=== PATIENT | female | born 1995 | race Asian ===

== ENCOUNTER 2023-04-08 14:07 | Inpatient (IN) ==
[2023-04-08] MEDS ORDERED: LIDOCAINE 1% LOCAL 20 ML VIAL INFIL PRN (14:16)
[2023-04-08] MEDS ORDERED: OXYTOCIN 30 UNITS/NSS 30 UNITS/500 ML BAG IV PRN ×2 (14:16→15:48)
[2023-04-08 14:41] LABS: Hematocrit (blood only) 37.4 % (37.0-47.0); Mean Corpuscular Hgb Conc 34.8 g/dL (32.0-36.0); Mean Corpuscular Volume 92.1 fL (80.0-100.0); Mean Platelet Volume 9.9 fL (9.4-12.4); Platelet Count 214 K/uL (130-400); RDW Standard Deviation 40.7 fL (36.4-46.3); Red Blood Count 4.06 M/uL (4.20-5.40); White Blood Count 6.34 K/ul (4.8-10.8)
--- NOTE | 2023-04-08 16:09 | History & Physical Report ---
Date of Service April 08, 2023 Assessment & Plan (1) Supervision of normal first : Plan: Admit to L&D. EFM/toco. Labs. IV. Amezcua/pit for IOL. Amezcua bulb inserted, 35cc sterile water. Tolerated well. Admission and Anticipated Discharge Date Admission Date: April 08, 2023 History of Present Illness Chief Complaint: IOL Primary Care Provider: [facility] 28yo @ 40 0/7, IOL after in-office NST showed 3 minute deceleration. Hx anorexia Initial HIV-1 pos, follow up secondary testing negative. Thus negative S<D *efw 01/28/23--> 14%, watch fh Allergies Allergy/AdvReac Type Severity Reaction Status Date / Time latex AdvReac Mild Unknown Verified 04/08/23 14:26 avocado AdvReac Unknown Verified 04/08/23 14:27 eliseo AdvReac Unknown Verified 04/08/23 14:26 Home Medications Medication Instructions Recorded Confirmed Type prenat.vits,enzo,sah-[id number]-zzwvi 1 tab PO DAILY 08/20/22 04/08/23 History Patient History Medical History History of chicken pox Surgical History No history of previous surgery Family History Father Hypertension Hypercholesteremia Denies family history of Ovarian cancer Breast cancer Colorectal cancer Social History Smoking Status: Never smoker Do You Dip or Chew Tobacco: No; Hx Alcohol Use: No Hx Substance Use: No Preferred Language: Polish Communication Ability: Effective Telephone Ad Taker Required: No Beliefs That Will Affect Care: None marital status: marital status details: Palomo (29) [phone] Current Living Situation: Spouse Current Living Situation Comment: lives with spouse, no pets current occupational status: student current occupation: grad student [employer] Other Information That Helps Us Care for You: No Feels Safe at Home: Yes Safety Concerns: Feels Safe At This Time Assistive Devices: None Review of Systems All systems reviewed & are unremarkable except as noted in HPI & below Physical Exam Physical Exam: FHT Cat 1 Salome Q 4 SVE 90/-2 Constitutional: WD/WN, vitals as above Respiratory: normal respiratory effort, lungs clear to auscultation no respiratory distress Cardiovascular: Rate/Rhythm: regular rate and regular rhythm Gastrointestinal (Abdomen): Inspection/Auscultation: abdomen normal to inspection Percussion/Palpation: abdomen soft; abdomen nontender Gravid. No s/s chorio or abruption. Skin: no rashes, warm and dry Psychiatric: A+Ox3, euthymic affect Results & Data Vital Signs (Past 12 Hours) Vital Signs Temp Pulse Resp BP 04/08/23 14:21 20 04/08/23 14:21 36.6 C 20 04/08/23 14:20 58 L 137/81 Coding Level of Care Code None Diagnoses Supervision of normal first Z34.00 CPT Codes Misx Procedure Codes - 33097 Placement of cervical dilator: 84551 Placement of cervical dilator ([id number])
[2023-04-08] MEDS ORDERED: ePHEDrine sulfate 50 MG/ML AMP ONE (21:17)
[2023-04-08] MEDS ORDERED: fentaNYL citrate PF 100 MCG/2 ML VIAL ONE (21:17)
[2023-04-08] MEDS ORDERED: BUPIVACAINE 0.25% PF 30 ML VIAL ONE (21:18)
[2023-04-08] MEDS ORDERED: LIDOCAINE 2%/EPINEPHRINE 1:200,000 20 ML PF ONE (21:18)
[2023-04-08] MEDS ORDERED: fentANYL 2 MCG/ML BUPIVacaine 0.125%-NSS 100ML BAG ONE (21:18)
[2023-04-08] MEDS ORDERED: SODIUM CHLORIDE 0.9% PF INJ 10 ML VIAL ONE (21:18)
[2023-04-08] MEDS: LACTATED RINGER'S 1,000 ML IV PRN ×2 (21:23→22:28)
--- NOTE | 2023-04-08 21:31 | Anesthesiology Consultation ---
Date of Service April 08, 2023 Assessment & Plan Consults Requested none Proposed Anesthesia Anesthesia Type: Labor Epidural History Height/Weight Height: 5 ft 4.17 in Weight: 49.442 kg Allergies Allergy/AdvReac Type Severity Reaction Status Date / Time latex AdvReac Mild Unknown Verified 04/08/23 14:26 avocado AdvReac Unknown Verified 04/08/23 14:27 eliseo AdvReac Unknown Verified 04/08/23 14:26 Medications Home Medications Medication Instructions Recorded Confirmed Last Taken prenat.vits,enzo,mhq-hucf-hhudr 1 tab PO DAILY 08/20/22 04/08/23 04/08/23 05:00 Active Medications Generic Name Dose Route Start Last Admin Trade Name Freq PRN Reason Stop Dose Admin Lactated Ringer's 1,000 mls @ 125 mls/hr 04/08/23 14:16 04/08/23 21:23 Lr IV 04/10/23 14:15 999 mls/hr .Q8H PRN Administration L&D Protocol Protocol Past Medical History Medical History History of chicken pox Past Family History Family History Father Hypertension Hypercholesteremia Denies family history of Ovarian cancer Breast cancer Colorectal cancer Past Surgical History Surgical History No history of previous surgery Social History Smoking Status: Never smoker Do You Dip or Chew Tobacco: No Hx Alcohol Use: No Hx Substance Use: No Physical Exam Vital Signs Last Vital Signs Temp 36.8 C 04/08/23 19:00 Pulse 66 04/08/23 21:28 Resp 18 04/08/23 19:00 BP 111/72 04/08/23 21:30 Pulse Ox 98 04/08/23 21:28 Constitutional WD/WN, vitals as above Respiratory normal respiratory effort, lungs clear to auscultation no respiratory distress Cardiovascular Rate/Rhythm: regular rate and regular rhythm Gastrointestinal (Abdomen) Inspection/Auscultation: abdomen normal to inspection Percussion/Palpation: abdomen soft; abdomen nontender Skin no rashes, warm and dry Psychiatric A+Ox3, euthymic affect Testing Laboratory Results 04/08/23 14:29
[2023-04-08] MEDS ORDERED: fentaNYL citrate PF 100 MCG/2 ML VIAL EPI PRN (21:50)
[2023-04-08] MEDS ORDERED: ROPIVACAINE 0.5% PF 5 MG/ML 20 ML VIAL EPI PRN (21:50)
[2023-04-08] MEDS ORDERED: fentaNYL citrate PF 100 MCG/2 ML VIAL EPI STA (21:50)
[2023-04-08] MEDS ORDERED: fentANYL 2 MCG/ML BUPIVacaine 0.125%-NSS 100ML BAG EPI PRN (21:50)
[2023-04-08] MEDS ORDERED: SODIUM CHLORIDE 0.9% PF INJ 10 ML VIAL EPI PRN (21:50)
[2023-04-08] MEDS ORDERED: NALBUPHINE HCL 5 MG in SYRINGE 0 ML IV PRN (21:50)
[2023-04-08] MEDS ORDERED: BUPIVACAINE 0.25% PF 30 ML VIAL EPI STA (21:50)
[2023-04-08] MEDS ORDERED: LIDOCAINE 2% MPF LOCAL 5 ML VIAL EPI PRN (21:50)
[2023-04-08] MEDS ORDERED: BUPIVACAINE 0.25% PF 30 ML VIAL EPI PRN (21:50)
[2023-04-08] MEDS ORDERED: NALOXONE HCL 0.4 MG/1 ML VIAL/CARP IV PRN (21:50)
[2023-04-08] MEDS ORDERED: SODIUM CHLORIDE 0.9% PF INJ 10 ML VIAL EPI STA (21:50)
[2023-04-08] MEDS ORDERED: diphenhydrAMINE 50 MG/ML VIAL IV PRN (21:50)
[2023-04-08] MEDS ORDERED: ePHEDrine sulfate 50 MG/ML AMP IV PRN (21:50)
[2023-04-08] MEDS ORDERED: LIDOCAINE 2%/EPINEPHRINE 1:200,000 20 ML PF EPI STA (21:50)
[2023-04-08] MEDS ORDERED: NALOXONE HCL 1 MG in SODIUM CHLORIDE 0.9% 1,000 ML IV PRN (21:50)
[2023-04-09] MEDS ORDERED: oxyCODONE/ACETAMINOPHEN 5mg/325mg TAB PO PRN (02:15)
[2023-04-09] MEDS ORDERED: IBUPROFEN 600 MG TAB PO PRN (02:15)
[2023-04-09] MEDS ORDERED: OXYTOCIN 30 UNITS/NSS 30 UNITS/500 ML BAG IV PRN (02:15)
[2023-04-09] MEDS ORDERED: DIPHTHERIA/TETANUS/PERTUSSIS Vaccine (Tdap, Age 7+yrs) 0.5mL SYR/VL IM ONE (02:15)
[2023-04-09] MEDS ORDERED: HYDROCORTISONE ACETATE 25 MG SUPP PR PRN (02:15)
[2023-04-09] MEDS ORDERED: BENZOCAINE 20% SPRY 85 APPLN/85 GM CAN EXT PRN (02:15)
[2023-04-09] MEDS ORDERED: ACETAMINOPHEN 325 MG TAB PO PRN (02:15)
--- NOTE | 2023-04-09 02:15 | Delivery Summary ---
Vaginal Delivery Summary Date of Service April 09, 2023 Vaginal Delivery Summary and 1st Degree LAC Vaginal Delivery Summary: Pre-delivery diagnoses: 28yo @ 40 1/7, IOL, maternal anorexia, size < dates Post-delivery diagnoses: same Procedure: spontaneous vaginal delivery, repair 1st degree perineal laceration Surgeon: Peggy Wu DO Complications: none Findings: Viable male . Apgars: 7/9. Weight pending, please see nursery records. Estimated blood loss: 300ml Description of delivery: The patient progressed to complete with epidural anesthesia. She then began to push. She spontaneously vaginally delivered a viable from the cephalic presentation. The head delivered in PRATIK position. The anterior shoulder delivered, followed by the posterior shoulder, followed by the body. The baby was placed on mother's abdomen and a spontaneous cry was heard. The cord was doubly clamped and cut. A segment was retained for cord gases. Cord blood was obtained. The placenta was delivered spontaneously intact with a 3-vessel cord. The uterus and vagina were swept of clots and debris. IV pitocin was given. The uterus became firm. The cervix, vagina, and perineum were inspected and a 1st degree perineal laceration was noted and repaired with 3-0 Vicryl in standard fashion. Excellent hemostasis was observed. The mother and baby are recovering in stable and good condition in the room. Sponge, needle and instrument counts were correct x 2. Peggy uW DO [facility] Vaginal Delivery Charge Vaginal Delivery Codes: 35391 global code for the antepartum, delivery, and post- Delivery Type Details: and 1st Degree LAC
[2023-04-09 03:14] LABS: Base Excess Cord Venous Blood -5.2 mEq/L (-7.7-1.9); Cord Venous Blood HCO3 24 mmol/L (18.4-26.8); Cord Venous Blood PCO2 61 mmHg (30.4-57.2); Cord Venous Blood PO2 25 mmHg (14.1-43.3); O2 Saturation Cord Venous Bld < 60.0 % (<68)
[2023-04-09 03:15] LABS: Base Excess Cord Arterial Bld -7.1 mEq/L (-9-1.8); CO2 Cord Arterial Blood 70 mmHg (39.1-73.5); HCO3 Cord Arterial Blood 23 mmol/L (19.7-28.5); PO2 Cord Arterial Blood < 20 mmHg (4.1-31.7); pH Cord Arterial Blood 7.13 (7.1-7.38)
[2023-04-09] MEDS: DOCUSATE SODIUM 100 MG CAP PO SCH ×2 (08:25→22:15)
[2023-04-09] MEDS: PRENATAL VITAMIN 1 TAB PO SCH (08:25)
--- NOTE | 2023-04-09 08:58 | Anesthesia Procedure Note ---
Date of Service April 09, 2023 Anesthesia Post Epidural Note Vital Signs Vital Signs: Temp Pulse Resp BP Pulse Ox O2 Del Method 36.6 C 70 16 97/60 L 96 Room Air 04/09/23 04:35 04/09/23 04:35 04/09/23 04:35 04/09/23 04:35 04/09/23 04:35 04/09/23 04:35 Pain Intensity Lower Abdomen: Pain Intensity: 3 Episiotomy/Laceration: Pain Intensity: 1 Notes Mental Status: alert / awake / arousable and participated in evaluation Nausea / Vomiting: adequately controlled Pain: adequately controlled Airway Patency, RR, SpO2: stable & adequate BP & HR: stable & adequate Hydration State: stable & adequate Neuraxial Anesthesia: was administered and sensory block is resolving Anesthetic Complications: no major complications apparent Epidural: Removed without complications and With tip intact
--- NOTE | 2023-04-10 07:12 | Obstetrical Progress Note ---
Date of Service April 10, 2023 Assessment & Plan (1) Supervision of normal first : Plan 28 yo PP1 s/p VSS, meeting milestones Rh+, rub imm desires dc home today, ok to do Subjective Ambulation: ambulating normally Voiding: no voiding problems Passing Gas:: Yes Diet Tolerance:: regular diet Lochia:: Small Feeding Type:: breast feeding Pain well managed with medication Review of Systems Denies fevers, chills, n/v, VILLALPANDO, CP, SOB Physical Exam Constitutional WD/WN, vitals as above no acute distress Respiratory normal respiratory effort, lungs clear to auscultation Cardiovascular RRR, no murmur, no edema Gastrointestinal (Abdomen) Percussion/Palpation: abdomen soft; abdomen nontender fundus firm at umbilicus and NT Musculoskeletal BLE symmetric, nonerythematous, nontender Results & Data Vital Signs (Past 12 Hours) Vital Signs Temp Pulse Resp BP Pulse Ox O2 Del Method 04/09/23 23:54 97.9 F 80 18 102/67 96 Room Air 04/09/23 19:53 97.7 F 74 18 105/66 97 Room Air
[2023-04-10 07:23] LABS: Hematocrit (blood only) 31.9 % (37.0-47.0); Hemoglobin 10.5 g/dl (12.0-16.0)
[2023-04-10] MEDS: PRENATAL VITAMIN 1 TAB PO SCH (08:12)
[2023-04-10] MEDS: DOCUSATE SODIUM 100 MG CAP PO SCH (08:12)
[2023-04-10] MEDS ORDERED: bisacodyL 5 MG TABEC PO SCH (20:00)
[2023-04-11] MEDS ORDERED: bisacodyL 10 MG SUPP PR PRN (02:15)
== END 2023-04-10 11:34 | disposition home or self-care (01) | DRG 807 ==
LOC: OPB 14:07 → 4S1 14:11 → 4E2 04-09 04:39